=== PATIENT | male | born 1965 | race Caucasian/White ===

== ENCOUNTER 2019-02-26 10:16 | Emergency (ER) | payer OTHER ==
[2019-02-26] MEDS: Sodium Chloride 0.9% 1,000 ML IV SCH ×2 (10:40→12:47)
--- NOTE | 2019-02-26 10:49 | EDM.PDOC ---
ED HPI GENERAL MEDICAL PROBLEM - General Chief Complaint: General Stated Complaint: dizzy and shakey, blurred vision Time Seen by Provider: 02/26/19 10:30 Source of Information: Reports: Patient, RN - History of Present Illness INITIAL COMMENTS - FREE TEXT/NARRATIVE: 53 yr male presents with dizziness and some blurred vision, numbness around mouth, and short of breath. 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 He thought blood sugar was low, so he did eat a sandwich and is feeling some better. States he is feeling dry and is so thirsty. States no history of HTN, HLD and hasn't been to PCP for quite some time. Family hx of Htn and diabetes Middle Chest Pain Score (Numeric/FACES): 3 - Related Data Allergies Allergy/AdvReac Type Severity Reaction Status Date / Time bee venom protein (honey bee) Allergy Airway Verified 02/26/19 11:57 Tightness Home Meds: Home Meds Omeprazole Magnesium [Prilosec Otc] 20 mg PO 02/26/19 [History] ED ROS GENERAL - Review of Systems Review Of Systems: See Below Constitutional: Reports: No Symptoms HEENT: Reports: Vision Change, Other (blurred vision). Denies: Eye Discharge, Eye Pain, Glasses Respiratory: Reports: Shortness of Breath Cardiovascular: Reports: Lightheadedness, Other (hx of diverticulitis and umbulical hernia) GI/Abdominal: Denies: Constipation, Diarrhea Musculoskeletal: Reports: No Symptoms Skin: Reports: No Symptoms Neurological: Reports: Dizziness, Headache. Denies: Trouble Speaking, Difficulty Walking Psychiatric: Reports: No Symptoms Hematologic/Lymphatic: Reports: No Symptoms ED EXAM, GENERAL - Physical Exam Exam: See Below Exam Limited By: No Limitations General Appearance: Alert, No Apparent Distress Eye Exam: Bilateral Eye: PERRL Ears: Normal External Exam, Normal Canal, Hearing Grossly Normal Ear Exam: Bilateral Ear: TM normal Nose: Normal Inspection, Normal Mucosa Throat/Mouth: Normal Inspection, Normal Oropharynx, Normal Voice Head: Atraumatic, Normocephalic Neck: Supple, Non-Tender Respiratory/Chest: No Respiratory Distress, Lungs Clear, Normal Breath Sounds Cardiovascular: Normal Peripheral Pulses, Regular Rate, Rhythm, No Edema Peripheral Pulses: 2+: Radial (L), Radial (R) GI/Abdominal: Normal Bowel Sounds, Soft, Non-Tender, Other (umbilical hernia) Extremities: Normal Range of Motion, Non-Tender, No Pedal Edema Neurological: Alert, Oriented, Normal Cognition Psychiatric: Normal Affect, Normal Mood Skin Exam: Warm, Dry, Normal Color Lymphatic: No Adenopathy Course - Vital Signs Last Recorded V/S: Last Vital Signs Temp 98.4 F 02/26/19 10:20 Pulse 92 02/26/19 10:20 Resp 18 02/26/19 10:20 BP 168/89 H 02/26/19 10:20 Pulse Ox 99 02/26/19 10:20 - Orders/Labs/Meds Orders: Active Orders 24 hr Category Date Time Status EKG Documentation Completion [RC] ASDIRECTED Care 02/26/19 10:58 Active Labs: Laboratory Tests 02/26/19 02/26/19 02/26/19 Range/Units 10:50 10:50 10:50 WBC 6.8 (4.0-11.0) K/uL RBC 4.98 (4.50-6.50) M/uL Hgb 15.7 (13.0-18.0) g/dL Hct 45.1 (40.0-54.0) % MCV 91 (76-96) fL MCH 31.5 (27.0-32.0) pg MCHC 34.8 (31.0-35.0) g/dL RDW 12.5 (11.0-16.0) % Plt Count 261 (150-400) K/uL MPV 9.6 (6.0-10.0) fL Neut % (Auto) 50.5 (45.0-70.0) % Lymph % (Auto) 36.3 (20.0-40.0) % [place] % (Auto) 8.8 (3.0-10.0) % Eos % (Auto) 4.0 (1.0-5.0) % Baso % (Auto) 0.4 (0.0-0.5) % Neut # (Auto) 3.44 (2.00-7.50) K/uL Lymph # (Auto) 2.47 (1.50-4.00) K/uL [place] # (Auto) 0.60 (0.20-0.80) K/uL Eos # (Auto) 0.27 (0.04-0.40) K/uL Baso # (Auto) 0.03 (0.02-0.10) K/uL Sodium 143 (136-145) mmol/L Potassium 3.7 (3.5-5.1) mmol/L Chloride 106 (98-107) mmol/L Carbon Dioxide 26.7 (21.0-32.0) mmol/L Anion Gap 14.0 (5.0-15.0) mmol/L BUN 12 (8-26) mg/dL Creatinine 1.07 (0.70-1.30) mg/dL Est Cr Clr Drug Dosing TNP Estimated GFR (MDRD) > 60 (>60) MLS/MIN BUN/Creatinine Ratio 11.2 (6-25) Glucose 103 H (74-100) mg/dL Hemoglobin A1c (4.5-6.2) % Calcium 8.6 (8.5-10.1) mg/dL Total Bilirubin 0.9 (0.0-1.0) mg/dL AST 34 (15-37) U/L ALT 94 H (12-78) U/L Alkaline Phosphatase 63 (46-116) U/L Troponin I < 0.017 (0.000-0.060) ng/mL Total Protein 7.7 (6.4-8.2) g/dL Albumin 3.9 (3.4-5.0) g/dL Globulin 3.8 (2.2-4.2) g/dL Albumin/Globulin Ratio 1.0 (0.8-2.0) 02/26/19 Range/Units 10:50 WBC (4.0-11.0) K/uL RBC (4.50-6.50) M/uL Hgb (13.0-18.0) g/dL Hct (40.0-54.0) % MCV (76-96) fL MCH (27.0-32.0) pg MCHC (31.0-35.0) g/dL RDW (11.0-16.0) % Plt Count (150-400) K/uL MPV (6.0-10.0) fL Neut % (Auto) (45.0-70.0) % Lymph % (Auto) (20.0-40.0) % [place] % (Auto) (3.0-10.0) % Eos % (Auto) (1.0-5.0) % Baso % (Auto) (0.0-0.5) % Neut # (Auto) (2.00-7.50) K/uL Lymph # (Auto) (1.50-4.00) K/uL [place] # (Auto) (0.20-0.80) K/uL Eos # (Auto) (0.04-0.40) K/uL Baso # (Auto) (0.02-0.10) K/uL Sodium (136-145) mmol/L Potassium (3.5-5.1) mmol/L Chloride (98-107) mmol/L Carbon Dioxide (21.0-32.0) mmol/L Anion Gap (5.0-15.0) mmol/L BUN (8-26) mg/dL Creatinine (0.70-1.30) mg/dL Est Cr Clr Drug Dosing Estimated GFR (MDRD) (>60) MLS/MIN BUN/Creatinine Ratio (6-25) Glucose (74-100) mg/dL Hemoglobin A1c 6.1 (4.5-6.2) % Calcium (8.5-10.1) mg/dL Total Bilirubin (0.0-1.0) mg/dL AST (15-37) U/L ALT (12-78) U/L Alkaline Phosphatase (46-116) U/L Troponin I (0.000-0.060) ng/mL Total Protein (6.4-8.2) g/dL Albumin (3.4-5.0) g/dL Globulin (2.2-4.2) g/dL Albumin/Globulin Ratio (0.8-2.0) Meds: Medications Discontinued Medications Generic Name Dose Route Start Last Admin Trade Name Freq PRN Reason Stop Dose Admin Sodium Chloride 1,000 mls @ 125 mls/hr 02/26/19 10:45 02/26/19 12:47 Normal Saline IV 125 mls/hr ASDIRECTED FOR[facility], 1928–1983 Administration - Re-Assessments/Exams Free Text/Narrative Re-Assessment/Exam: 02/26/19 11:51 Labs are reviewed and no significant findings. EKG w NSR and Troponins negative. Hgb A1c is 6.1. Discussed results with pt. CT of head recommended. At first pt declines imaging and discussed with and consents to CT of head w/o contrast. Departure - Departure Time of Disposition: 13:05 Disposition: Home, Self-Care 01 Clinical Impression: HTN (hypertension), Blurry vision, Dizziness, nonspecific - Discharge Information *PRESCRIPTION DRUG MONITORING PROGRAM REVIEWED*: Not Applicable *COPY OF PRESCRIPTION DRUG MONITORING REPORT IN PATIENT ZARA: Not Applicable Referrals: PCP,None [Primary Care Provider] - Forms: ED Department Discharge Additional Instructions: F/U with PCP in next 1-2 week, monitor BP and bring to your appointment. F/U with eye care provider. - My Orders Last 24 Hours: My Active Orders 02/26/19 10:58 EKG Documentation Completion [RC] ASDIRECTED - Assessment/Plan Last 24 Hours: My Active Orders 02/26/19 10:58 EKG Documentation Completion [RC] ASDIRECTED Plan: Blurred vision, headache, hypertension: Symptoms improved with IV bolus 1 Liter Nacl. Reviewed labs, EKG and CT of head with pt. No significant findings. Recommend to rest and relax today. Tylenol as needed for headache. Recommend eating on regular basis, adequate fluids, F/U with eye care provider, monitor BP, F/U with PCP in 1-2 weeks. Discussed starting antihypertensive today and pt declines at this time. Counseled on dietary changes to limit sodium, limit alcohol, limit fatty foods and diet with adequate fruits and vegetables.
[2019-02-26 11:31] LABS: HEMOGLOBIN A1C 6.1 % (4.5-6.2)
[2019-02-26 11:46] VITALS: PULSE 92
--- NOTE | 2019-02-26 12:22 | CT ---
DATE OF SERVICE: 02/26/2019 CLINICAL DATA: Blurred vision, diaphoresis, headache Unenhanced brain CT: Multislice axial acquisition was performed. No priors. No masses or mass effect. No intracranial hemorrhage. No evidence of acute or subacute infarct. No osseous abnormalities. Impression: No acute intracranial abnormalities. MTDD
[2019-02-26 22:22] VITALS: BP 131/73
== END 2019-02-26 13:05 | disposition home or self-care (01) ==
LOC: LB.ED 10:16
DX: I10 Essential (primary) hypertension (principal); H53.8 Other visual disturbances; Z91.030 Bee allergy status
CPT/HCPCS: 36415; 70450; 80053; 83036; 84484; 85025; 93005; 96360; 96361; 99284-25; J7030

== ENCOUNTER 2019-12-06 08:01 | Emergency (ER) | payer OTHER ==
[2019-12-06] MEDS ORDERED: diphenhydrAMINE 50 MG/ML SDV IVPUSH ONE (08:08)
[2019-12-06] MEDS ORDERED: Famotidine 20 MG/2 ML SDV IVPUSH ONE (08:08)
--- NOTE | 2019-12-06 08:27 | EDM.PDOC ---
ED HPI GENERAL MEDICAL PROBLEM - General Chief Complaint: Allergic Reaction Stated Complaint: BEE STING Time Seen by Provider: 12/06/19 08:01 Source of Information: Reports: Patient History Limitations: Reports: No Limitations - History of Present Illness INITIAL COMMENTS - FREE TEXT/NARRATIVE: pt states allergy to bee stings and was stung by a bee on his right pinky finger prior to arrival. pt states some swelling to his pinky finger. pt denies SOB, pruritic rash, facial or tongue swelling, nausea, diarrhea. - Related Data Allergies Allergy/AdvReac Type Severity Reaction Status Date / Time bee venom protein (honey bee) Allergy Airway Verified 12/06/19 08:11 Tightness Home Meds: Home Meds Omeprazole Magnesium [Prilosec Otc] 20 mg PO DAILY 02/26/19 [History] EPINEPHrine [Epinephrine] 0.3 mg IJ ONCALL PRN #2 auto.injct 12/06/19 [Rx] ED ROS GENERAL - Review of Systems Review Of Systems: Comprehensive ROS is negative, except as noted in HPI. ED EXAM, GENERAL - Physical Exam Exam: See Below Exam Limited By: No Limitations General Appearance: Alert, WD/WN, No Apparent Distress Eye Exam: Bilateral Eye: EOMI, PERRL Throat/Mouth: Normal Inspection, Normal Lips, Normal Oropharynx Head: Atraumatic, Normocephalic Neck: Normal Inspection Respiratory/Chest: No Respiratory Distress, Lungs Clear, Normal Breath Sounds, No Accessory Muscle Use Cardiovascular: Normal Peripheral Pulses, Regular Rate, Rhythm, No Edema Peripheral Pulses: 2+: Radial (L), Radial (R) GI/Abdominal: Normal Bowel Sounds, Soft, Non-Tender Extremities: Normal Inspection, Non-Tender Neurological: Alert, Oriented, CN II-XII Intact, Normal Cognition, Normal Gait Psychiatric: Normal Affect, Normal Mood Skin Exam: Warm, Dry, Rash (hives throughout back) Course - Orders/Labs/Meds Meds: Medications Discontinued Medications Generic Name Dose Route Start Last Admin Trade Name Freq PRN Reason Stop Dose Admin Diphenhydramine HCl 50 mg 12/06/19 08:08 Benadryl IVPUSH 12/06/19 08:09 ONETIME ONE Famotidine 20 mg 12/06/19 08:08 Pepcid IVPUSH 12/06/19 08:09 ONETIME ONE Departure - Departure Time of Disposition: 09:47 Disposition: Home, Self-Care 01 Condition: Good Clinical Impression: Allergic reaction - Discharge Information *PRESCRIPTION DRUG MONITORING PROGRAM REVIEWED*: Not Applicable *COPY OF PRESCRIPTION DRUG MONITORING REPORT IN PATIENT ZARA: Not Applicable Prescriptions: EPINEPHrine [Epinephrine] 0.3 mg IJ ONCALL PRN #2 auto.injct PRN Reason: Allergies Referrals: PCP,None [Primary Care Provider] - Forms: ED Department Discharge - Problem List & Annotations (1) Allergic reaction SNOMED Code(s): 099106475 Code(s): T78.40XA - ALLERGY, UNSPECIFIED, INITIAL ENCOUNTER Status: Acute Priority: High Current Visit: Yes Qualifiers: Encounter type: initial encounter Qualified Code(s): T78.40XA - Allergy, unspecified, initial encounter - Problem List Review Problem List Initiated/Reviewed/Updated: Yes - Assessment/Plan Assessment:: assessment: allergic reaction plan: refill epi pen as other prescription is monitor for s/s of allergic reaction and anaphylaxis benadryl prn as discussed allergic reaction with localized swelling of pinky finger and few hives of back and chest. these resolved completely after 30 minutes with IV benadryl. pt d/c home and instructed to refill epipen as his are by about 10 years.
[2019-12-06] MEDS ORDERED: methylPREDNISolone Sodium Succinate 125 MG/2 ML SDV IVPUSH ONE (08:34)
== END 2019-12-06 10:07 | disposition home or self-care (01) ==
LOC: LB.ED 08:01
DX: T63.441A Toxic effect of venom of bees, accidental (unintentional), initial encounter (principal); Z79.899 Other long term (current) drug therapy
CPT/HCPCS: 96374; 96375; 99282; J1200; J2930; 99283